=== PATIENT | female | born 1970 ===

== ENCOUNTER 2017-08-01 19:06 | Emergency (ER) | payer SELFPAY ==
[2017-08-01 19:28] VITALS: BP 127/84; PULSE 111; RESP 20; TEMP 97.8; O2SAT 98
--- NOTE | 2017-08-01 20:17 | C.PDOC ---
History Of Present Illness 20:16 Went to evaluate patient and patient had eloped from the ED Time Seen by Provider: 08/01/17 20:16 Chief Complaint (Nursing): Psychiatric Evaluation Past Medical History Vital Signs: Last Vital Signs Temp 97.8 F 08/01/17 19:21 Pulse 111 H 08/01/17 19:21 Resp 20 08/01/17 19:21 BP 127/84 08/01/17 19:21 Pulse Ox 98 08/01/17 20:34 - Medical History PMH: HTN Family History: States: No Known Family Hx - Social History Hx Alcohol Use: No Hx Substance Use: No - Immunization History Hx Tetanus Toxoid Vaccination: Yes Hx Influenza Vaccination: Yes Hx Pneumococcal Vaccination: Yes ED Course And Treatment O2 Sat by Pulse Oximetry: 98 Disposition Counseled Patient/Family Regarding: Diagnosis, Need For Followup - Disposition Disposition: ELOPEMENT - ER ONLY Disposition Time: 20:17 Condition: UNKNOWN Forms: [facility] (French) - Clinical Impression Clinical Impression: Depression
== END 2017-08-01 20:16 | disposition left against medical advice (07) ==
LOC: C.ER 19:06
DX: Z02.89 Encounter for other administrative examinations (principal); F32.9 Major depressive disorder, single episode, unspecified